=== PATIENT | female | born 1955 | race Caucasian/White ===

== ENCOUNTER → 2020-09-28 | Outpatient (REF) ==
--- NOTE | 2020-09-28 15:30 | Diagnostic Imaging Report ---
Indication: Right hip pain 2 views of the right hip show no fracture, dislocation or other acute abnormalities. IMPRESSION: No acute abnormality seen in the right hip Dictated by: Dictated on workstation # [id number]
--- NOTE | 2020-09-28 15:32 | Diagnostic Imaging Report ---
Indication: Right rib injury from a fall 3 views of the right ribs show no displaced fractures. There is no effusion or pneumothorax. IMPRESSION: Negative right ribs Dictated by: Dictated on workstation # [id number]
--- NOTE | 2020-09-28 15:37 | Diagnostic Imaging Report ---
INDICATION: Right ankle injury. FINDINGS: Three views of the right ankle show no fracture, dislocation, or other acute abnormalities. There is an accessory ossicle seen on the lateral view at the base of the cuboid. IMPRESSION: Negative right ankle. Dictated by: Dictated on workstation # [id number]
== END ==
LOC: OCC 14:49
PROVIDERS: ATTEND Nurse Practitioner Family
DX: M25.571 Pain in right ankle and joints of right foot (principal); M25.551 Pain in right hip; R07.81 Pleurodynia; W19.XXXA Unspecified fall, initial encounter
CPT/HCPCS: 71100; 73502; 73610

== ENCOUNTER 2021-01-25 14:27 | Outpatient (RCR) | payer OTHER | END 2021-01-30 | disposition home or self-care (01) | PROVIDERS: ATTEND Nurse Practitioner Family | DX: M65.871 Other synovitis and tenosynovitis, right ankle and foot (principal) ==

== ENCOUNTER → 2021-05-24 | Outpatient (CLI) | payer OTHER ==
--- NOTE | 2021-05-24 19:37 | Diagnostic Imaging Report ---
EXAMINATION: Right hip radiographs, 2 views. COMPARISON: September 28, 2020. HISTORY: 66-year-old female, right hip pain. Fall one week ago. FINDINGS: The right hip is not dislocated. There is no joint space loss of the right hip, osteophyte formation or subchondral cystic change. There is no identified acute fracture. There are degenerative changes of the lumbar spine. IMPRESSION: No identified acute bony abnormality of the right hip. Dictated by: Dictated on workstation # [id number]
--- NOTE | 2021-05-24 19:38 | Diagnostic Imaging Report ---
EXAMINATION: Cervical spine radiographs, 3 views. COMPARISON: None. HISTORY: 66-year-old female, fall one week ago. Right-sided neck pain. FINDINGS: The lateral masses of C1 are normally aligned relative to C2. There is straightening of the normal cervical lordosis. There is mild disc height loss at C3-C4 and C4-C5. There is moderate disc height loss at C5-C6 and C6-C7. There are posterior osteophytes at these levels. There is no identified acute fracture of the cervical spine. Alignment of the cervical spine is grossly unremarkable. IMPRESSION: 1. No identified acute fracture of the cervical spine. 2. Mild to moderate disc degenerative changes of the cervical spine extending from C3-C4 through C6-C7. Dictated by: Dictated on workstation # [id number]
--- NOTE | 2021-05-24 19:38 | Diagnostic Imaging Report ---
EXAMINATION: Right ankle radiographs, 3 views. COMPARISON: September 28, 2020. HISTORY: 66-year-old female, fall. Right foot and ankle pain. FINDINGS: There is no tibiotalar joint effusion. There is no identified acute fracture. The alignment of the ankle mortise is unremarkable. There is no identified radiopaque foreign body. IMPRESSION: No acute bony abnormality of the right ankle. Dictated by: Dictated on workstation # [id number]
== END ==
LOC: RAD 18:36
PROVIDERS: ATTEND Nurse Practitioner Family
DX: M50.323 Other cervical disc degeneration at C6-C7 level (principal); M25.551 Pain in right hip
CPT/HCPCS: 72040; 73502; 73610

== ENCOUNTER → 2021-06-03 | Outpatient (CLI) | payer OTHER ==
--- NOTE | 2021-06-03 10:51 | Diagnostic Imaging Report ---
PROCEDURE: MRI pelvis without contrast. TECHNIQUE: Multiplanar, multisequence MRI of the pelvis was performed without contrast. INDICATION: Right hip pain. COMPARISON: Right hip radiographs from 05/24/2021. 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 No osteonecrosis of the right femoral head. No sacral insufficiency fracture. Right hip: No hip effusion. There is focal subchondral bone marrow edema and cystic change at the anterior aspect of the right acetabulum. Anterior aspect of the acetabular labrum has a linear tear present adjacent to the subchondral cystic change. Ligamentum teres remains intact. Muscles and tendons: The right gluteus minimus has tendinopathy and partial-thickness tearing along its posterior insertional fibers. The gluteus medius has some minimal tearing of its deep anterior fibers as well. Right distal iliopsoas is intact. The proximal hamstring complex is normal on both sides. Adductor musculature is unremarkable. Soft tissues: There is a subcutaneous mixed intensity collection with fluid-fluid level located lateral to the greater trochanter. This collection measures approximately 4.0 x 3.0 x 1.5 cm. No free pelvic fluid. IMPRESSION: 1. Partial-thickness tears of the right gluteus medius and minimus at their insertions on the greater trochanter. 2. No fracture or osteonecrosis. 3. [id number] osteoarthritis of right hip characterized by full-thickness chondral loss and subchondral bone marrow edema in the acetabulum. The adjacent anterior acetabular labrum also has a tear within it. 4. Chronic small subcutaneous hematoma overlying the greater trochanter. Dictated by: Dictated on workstation # [id number]
== END ==
LOC: RAD 08:30
PROVIDERS: ATTEND Nurse Practitioner Family
DX: S76.011A Strain of muscle, fascia and tendon of right hip, initial encounter (principal); W19.XXXA Unspecified fall, initial encounter; M16.11 Unilateral primary osteoarthritis, right hip
CPT/HCPCS: 72195

== ENCOUNTER 2021-07-12 16:06 | Outpatient (RCR) | payer OTHER | END 2021-08-14 11:52 | disposition home or self-care (01) | PROVIDERS: ATTEND Nurse Practitioner Family | DX: M25.571 Pain in right ankle and joints of right foot (principal); M25.551 Pain in right hip; M54.2 Cervicalgia; F41.9 Anxiety disorder, unspecified; Z96.642 Presence of left artificial hip joint; Z91.040 Latex allergy status ==